=== PATIENT | female | born 1955 | race Caucasian/White ===

== ENCOUNTER 2016-11-26 19:16 | Observation (INO) | payer OTHER ==
--- NOTE | 2016-11-26 20:05 | ER Document Report ---
ED Medical Screen (RME) - General Chief Complaint: Chest Pain Stated Complaint: CHEST PAIN Time Seen by Provider: 11/26/16 19:47 Mode of Arrival: Ambulatory Information source: Patient TRAVEL OUTSIDE OF THE [place] IN LAST 30 DAYS: No - HPI Patient complains to provider of: Chest pain Onset: This afternoon Onset/Duration: Sudden Quality of pain: Achy, Pressure Severity: Moderate Pain Level: 3 Associated Symptoms: Chest pain Exacerbated by: Denies Relieved by: Denies Notes: 11/26/16 20:04 Patient is a 61-year-old female with a history of hypertension, acid reflux, Corey's esophagitis, hiatal hernia, who presents to the emergency room complaining of chest pain that started 215 today, it has increased in intensity over the midsternum since then, when the pain started she felt flushed, she states she feels an uncomfortable heaviness, feels like she has to belch, she denies any shortness of breath, she did report a slight right-sided headache sensation when symptoms started, she took AcipHex at 5 PM without resolution of symptoms Past Medical History - Social History Chew tobacco use (# tins/day): No Frequency of alcohol use: None Drug Abuse: None - Past Medical History Cardiac Medical History: Reports: Hx Hypercholesterolemia, Hx Hypertension Renal/ Medical History: Denies: Hx Peritoneal Dialysis - Immunizations Hx Diphtheria, Pertussis, Tetanus Vaccination: Yes Physical Exam - Vital signs Vitals: Temp Pulse Resp BP Pulse Ox 98.2 F 87 16 140/79 H 98 11/26/16 19:39 11/26/16 19:39 11/26/16 19:39 11/26/16 19:39 11/26/16 19:39 Course - Vital Signs Vital signs: Temp Pulse Resp BP Pulse Ox 98.2 F 87 16 140/79 H 98 11/26/16 19:39 11/26/16 19:39 11/26/16 19:39 11/26/16 19:39 11/26/16 19:39
[2016-11-26 20:41] LABS: ABSOLUTE BASOPHILS # (AUTO) 0.1 10^3/uL (0.0-0.2); ABSOLUTE EOSINOPHILS # (AUTO) 0.3 10^3/uL (0.0-0.6); ABSOLUTE MONOCYTES (AUTO) 0.5 10^3/uL (0.1-1.4); ABSOLUTE NEUT (AUTO) 4.1 10^3/uL (1.7-8.2); BASOPHILS % (AUTO) 0.8 % (0-2); EOSINOPHILS % (AUTO) 3.8 % (0-6); HEMATOCRIT 39.6 % (36.0-47.0); HEMOGLOBIN 13.3 g/dL (12.0-15.5); HGB HCT DIFFERENCE 0.3; MEAN CORPUSCULAR HEMOGLOBIN 29.1 pg (27.0-33.4); MEAN CORPUSCULAR HGB CONC 33.5 g/dL (32.0-36.0); MEAN CORPUSCULAR VOLUME 87 fl (80-97); MONOCYTES % (AUTO) 6.5 % (3-13); RED BLOOD COUNT 4.56 10^6/uL (3.72-5.28); RED CELL DISTRIBUTION WIDTH 12.9 % (11.5-14.0); SEGMENTED NEUTROPHILS % (AUTO) 59.9 % (42-78); WHITE BLOOD COUNT 6.9 10^3/uL (4.0-10.5)
--- NOTE | 2016-11-26 20:50 | RADIOLOGY REPORT (SQ) ---
EXAM DESCRIPTION: CHEST PA/LAT COMPLETED DATE/TIME: 11/26/2016 8:37 pm REASON FOR STUDY: cp COMPARISON: None. EXAM PARAMETERS: NUMBER OF VIEWS: two views TECHNIQUE: Digital Frontal and Lateral radiographic views of the chest acquired. RADIATION DOSE: NA LIMITATIONS: none FINDINGS: LUNGS AND PLEURA: No opacities, masses or pneumothorax. No pleural effusion. MEDIASTINUM AND HILAR STRUCTURES: No masses or contour abnormalities. HEART AND VASCULAR STRUCTURES: Heart normal size. No evidence for failure. BONES: No acute findings. HARDWARE: None in the chest. OTHER: No other significant finding. IMPRESSION: No acute finding. TECHNICAL DOCUMENTATION: JOB ID: [id number] [employer]- All Rights Reserved
[2016-11-26 20:57] LABS: ALANINE AMINOTRANSFERASE 25 U/L (9-52); ALBUMIN 4.6 g/dL (3.5-5.0); ALKALINE PHOSPHATASE 128 U/L (38-126); ANION GAP 15 (5-19); ASPARTATE AMINO TRANSFERASE 26 U/L (14-36); BILIRUBIN,DIRECT 0.3 mg/dL (0.0-0.4); BILIRUBIN,TOTAL 0.6 mg/dL (0.2-1.3); BLOOD UREA NITROGEN 16 mg/dL (7-20); CALCIUM 10.1 mg/dL (8.4-10.2); CARBON DIOXIDE 26 mmol/L (22-30); CHLORIDE 102 mmol/L (98-107); CREATINE KINASE 143 U/L (30-135); CREATININE RESULT 0.83 mg/dL (0.52-1.25); GLUCOSE 97 mg/dL (75-110); POTASSIUM 3.9 mmol/L (3.6-5.0); SODIUM 142.8 mmol/L (137-145)
[2016-11-26 21:09] LABS: CREATINE KINASE MB 0.88 ng/mL (<4.55)
[2016-11-26 21:10] LABS: TROPONIN I < 0.012 ng/mL
[2016-11-26] MEDS ORDERED: ASPIRIN 81 MG TABLET, ENT COATED PO ONE (22:39)
--- NOTE | 2016-11-26 22:39 | ER Document Report ---
ED General - General Mode of Arrival: Ambulatory Information source: Patient TRAVEL OUTSIDE OF THE [place] IN LAST 30 DAYS: No - HPI Patient complains to provider of: Chest Pain Onset: Other - couple weeks ago Associated symptoms: Other - see notes above <HAYDE PERRY - Last Filed: 11/27/16 03:30> <DONATO VALDEZ - Last Filed: 11/27/16 03:53> - General Chief Complaint: Chest Pain Stated Complaint: CHEST PAIN Time Seen by Provider: 11/26/16 22:05 Notes: -year-old female with history of esophagus, hyperlipidemia, hypertension presents to the ED complaining of chest pain that started "a couple weeks ago". Patient states that she saw Dr. Hernandez for chest and back pain in September and began discussing possible appointment with a GI specialist. Patient reports that she was seen at an urgent care 2-3 weeks ago and was told to follow-up with a GI specialist secondary to her Corey's esophagus. Patient states that she has appointment with her GI specialist in 2 weeks. She states that today at around 6 PM in addition to her chest pain she began experiencing a "punching " sensation to her chest, became flushed, and had a headache which lasted for approximately 1 minute. Patient states that 5-10 minutes later she had a similar sensation again. Patient reports that she takes preventative measures for her Corey's is methodical about taking her medication. Patient had a nuclear stress test performed in May 2000 and normal stress test performed in January 2014. Patient denies any shortness of breath or diaphoresis. Patient is currently on AcipHex, Crestor, and Norvasc. PCP: Dr. Hernandez GI: Dr. Chu Cardio: Dr. Gilbert (HAYDE PERRY) - Related Data Allergies/Adverse Reactions: ciprofloxacin [From Cipro] Allergy (Verified 11/27/16 00:31) erythromycin base Allergy (Verified 11/27/16 00:31) feathers Allergy (Verified 11/27/16 00:31) mushroom Allergy (Verified 11/27/16 00:31) Sulfa (Sulfonamide Antibiotics) Allergy (Verified 11/27/16 00:31) Tetracyclines Allergy (Verified 11/27/16 00:31) codeine Adverse Reaction (Verified 11/27/16 00:31) lactose Adverse Reaction (Verified 11/27/16 00:31) lansoprazole [From Prevacid] Adverse Reaction (Verified 11/27/16 00:31) Home Medications: Current Home Medications Amlodipine Besylate [Amlodipine Besylate] 5 mg PO QHS 11/27/16 [History] Aspirin [Ecotrin] 81 mg PO QAM 11/27/16 [History] Cyanocobalamin (Vitamin B-12) [Vitamin B-12] 1,000 mcg PO QAM 11/27/16 [History] Multivit-Min/FA/Lycopen/Lutein [Adults 50+ Multivitamin Tablet] 1 tab PO QAM [History] Psyllium Husk [Metamucil] 1 cap PO DAILY 11/27/16 [History] Rabeprazole Sodium [Aciphex] 20 mg PO BID 11/27/16 [History] Rosuvastatin Calcium [Rosuvastatin Calcium] 10 mg PO QHS 11/27/16 [History] Simethicone [Gas Relief] 125 mg PO PRN PRN 11/27/16 [History] Past Medical History - General Information source: Patient - Social History Smoking Status: Unknown if Ever Smoked Chew tobacco use (# tins/day): No Frequency of alcohol use: None Drug Abuse: None Family History: Reviewed & Not Pertinent - Past Medical History Cardiac Medical History: Reports: Hx Hypercholesterolemia, Hx Hypertension EENT Medical History: Reports: Throat - Corey's esophagus Renal/ Medical History: Denies: Hx Peritoneal Dialysis Past Surgical History: Reports: Hx Cholecystectomy. Denies: Hx Cardiac Catheterization - Immunizations Hx Diphtheria, Pertussis, Tetanus Vaccination: Yes <HAYDE PERRY - Last Filed: 11/27/16 03:30> Review of Systems - Review of Systems Constitutional: No symptoms reported. denies: Diaphoresis EENT: No symptoms reported Cardiovascular: See HPI, Chest pain Respiratory: No symptoms reported. denies: Short of breath Gastrointestinal: No symptoms reported Genitourinary: No symptoms reported Female Genitourinary: No symptoms reported Musculoskeletal: No symptoms reported Skin: No symptoms reported Hematologic/Lymphatic: No symptoms reported Neurological/Psychological: See HPI, Headaches -: Yes All other systems reviewed and negative <HAYDE PERRY - Last Filed: 11/27/16 03:30> Physical Exam - General General appearance: Alert In distress: None - HEENT Head: Normocephalic, Atraumatic Eyes: Normal Extraocular movements intact: Yes Pupils: PERRL - Respiratory Respiratory status: No respiratory distress Breath sounds: Normal - Cardiovascular Rhythm: Regular Heart sounds: Normal auscultation - Abdominal Inspection: Normal Distension: No distension Tenderness: Nontender - Back Back: Normal - Extremities General upper extremity: Normal inspection, Normal ROM General lower extremity: Normal inspection, Normal ROM - Neurological Neuro grossly intact: Yes Cognition: Normal Orientation: AAOx4 [place] Coma Scale Eye Opening: Spontaneous [place] Coma Scale Verbal: Oriented [place] Coma Scale Motor: Obeys Commands [place] Coma Scale Total: 15 Speech: Normal - Psychological Associated symptoms: Normal affect, Normal mood - Skin Skin Temperature: Warm Skin Moisture: Dry Skin Color: Normal <HAYDE PERRY - Last Filed: 11/27/16 03:30> Course - Laboratory Result Diagrams: 11/26/16 20:26 11/26/16 20:26 - Consults Dr. Ogden Time consulted: 23:04 <HAYDE PERRY - Last Filed: 11/27/16 03:30> - Laboratory Result Diagrams: 11/26/16 20:26 11/26/16 20:26 <DONATO VALDEZ - Last Filed: 11/27/16 03:53> - Re-evaluation Re-evalutation: 11/26/16 23:53 Patient presents emerged from a chief complaint of chest pain. Patient has an extensive past medical history of Corey's esophagitis for which she sees a educational therapy teacher. She states that she has been having increasing problem with that for the past couple weeks but is very regimented with her diet and physical activity as well as her medications. She has seen her primary care physician and she has an appointment to see her GI doctor in 2 weeks. Today she had 2 separate episodes where she felt chest pressure and heaviness which was completely different than anything she ever felt with her Corey's before. She does have a history of high blood pressure hyperlipidemia. She was seen in the ED in [place] in 2013 for chest pain and had an outpatient stress test which was negative. She has never been told that she had an SC PE or cardiac stent. Her last EGD was in 2016 and she gets them every 3 years. They have not transformed into any cancerous type lesions. She took one Ecotrin prior to arrival and is pain-free from a chest pain standpoint. She said she also has some pain with palpation of the anterior chest wall and between her rib cage is been going on for a couple weeks but that was not the main reason she came in today. On physical exam she is well-appearing nontoxic in no acute distress negative acute EKG cardiac enzymes and chest x-ray. Given 3 additional Ecotrin pain-free. Talked with Dr. Ogden can admit her to the hospital for chest pain observation and further assessment evaluation. (DONATO VALDEZ) - Vital Signs Vital signs: Temp Pulse Resp BP Pulse Ox 98.2 F 87 23 H 141/74 H 97 11/26/16 19:39 11/27/16 01:43 11/27/16 00:46 11/27/16 00:46 11/27/16 00:46 - Laboratory Laboratory results interpreted by me: 11/26/16 20:26 Alkaline Phosphatase 128 H Creatine Kinase 143 H - EKG Interpretation by Me Additional EKG results interpreted by me: 11/26/16 23:55 EKG interpreted by myself revealed normal sinus rhythm at 60 bpm with no acute ST segment elevation or depression (DONATO VALDEZ) - Consults Dr. Ogden Reason for consultation: 11/27/16 23:04 Dr. Ogden was paged with no answer. 11/27/16 23:20 Dr. Ogden was paged with no answer. 11/27/16 23:52 Patient was discussed with Dr. Ogden who agrees to admit the patient. (HAYDE PERRY) Critical Care Note - Critical Care Note Total time excluding time spent on procedures (mins): 45 <DONATO VALDEZ - Last Filed: 11/27/16 03:53> Discharge <HAYDE PERRY - Last Filed: 11/27/16 03:30> - Discharge Admitting Provider: Hospitalist Unit Admitted: Telemetry <DONATO VALDEZ - Last Filed: 11/27/16 03:53> - Discharge Clinical Impression: Chest pain Qualifiers: Chest pain type: unspecified Qualified Code(s): R07.9 - Chest pain, unspecified Condition: Stable Disposition: ADMITTED OBSERVATION Scribe Attestation: 11/26/16 23:55 I personally performed the services described in the documentation reviewed the documentation recorded by my scribe in my presence and it accurately and completely records my words and actions (DONATO VALDEZ) Scribe Documentation - Scribe Written by Benoit:: Benoit Ravi, 11/26/2016 2325 acting as scribe for :: Lorenzo <HAYDE PERRY - Last Filed: 11/27/16 03:30>
[2016-11-26] MEDS ORDERED: LIDOCAINE 2% VISCOUS SOLN 20 ML UDCUP PO ONE (22:40)
[2016-11-26] MEDS ORDERED: MAG HYDROX/AL HYDROX/SIMETH SUSP 30 ML UDCUP PO ONE (22:40)
[2016-11-26] MEDS ORDERED: METOCLOPRAMIDE HCL ORAL SOLN 10 MG/10 ML UDCUP PO ONE (22:40)
[2016-11-27] MEDS ORDERED: NITROGLYCERIN 0.4 MG/TAB 25 TAB/BOTTLE SL PRN
--- NOTE | 2016-11-27 01:51 | PDOC H&P ---
History of Present Illness Admission Date/PCP: 11/27/16 00:00 ARELI MAI MD Patient complains of: Chest pain History of Present Illness: LEO CARRIZALES is a 61 year old female with a past medical history of hypertension, dyslipidemia, Corey's esophagus and GERD who had been her usual state of health until approximately 2 weeks ago having intermittent episodes of chest pain occurring while at rest which is retrosternal and pressure in nature waxing and waning. Alleviating and lacerating factors are completely variable. She denies shortness of breath or palpitations she has had some nausea without vomiting some diaphoresis. Patient is active with Pilates and or walking 2 miles 5 times a week for exercise. She denies any recent change in medications. No recent cardiac stress testing Past Medical History Cardiac Medical History: Reports: Hyperlipidema, Hypertension EENT Medical History: Reports: Throat - Corey's esophagus Past Surgical History Past Surgical History: Reports: Cholecystectomy Denies: Cardiac Catheterization Social History Information Source: Patient Lives with: Family Smoking Status: Never Smoker Frequency of Alcohol Use: None - Advance Directive Resuscitation Status: Full Code Family History Family History: Malignancy Parental Family History Reviewed: Yes Children Family History Reviewed: Yes Sibling(s) Family History Reviewed.: Yes Medication/Allergy Home Medications: Amlodipine Besylate [Amlodipine Besylate] 11/27/16 Aspirin [Ecotrin] 11/27/16 Psyllium Husk [Metamucil] 11/27/16 Rabeprazole Sodium [Aciphex] 11/27/16 Rosuvastatin Calcium [Rosuvastatin Calcium] 11/27/16 Simethicone [Gas Relief] 11/27/16 Allergies/Adverse Reactions: ciprofloxacin [From Cipro] Allergy (Verified 11/27/16 00:31) erythromycin base Allergy (Verified 11/27/16 00:31) feathers Allergy (Verified 11/27/16 00:31) mushroom Allergy (Verified 11/27/16 00:31) Sulfa (Sulfonamide Antibiotics) Allergy (Verified 11/27/16 00:31) Tetracyclines Allergy (Verified 11/27/16 00:31) codeine Adverse Reaction (Verified 11/27/16 00:31) lactose Adverse Reaction (Verified 11/27/16 00:31) lansoprazole [From Prevacid] Adverse Reaction (Verified 11/27/16 00:31) Review of Systems Constitutional: ABSENT: chills, fever(s), headache(s), weight gain, weight loss Eyes: ABSENT: visual disturbances Ears: ABSENT: hearing changes Cardiovascular: ABSENT: chest pain, dyspnea on exertion, edema, orthropnea, palpitations Respiratory: ABSENT: cough, hemoptysis Gastrointestinal: ABSENT: abdominal pain, constipation, diarrhea, hematemesis, hematochezia, nausea, vomiting Genitourinary: ABSENT: dysuria, hematuria Musculoskeletal: ABSENT: joint swelling Integumentary: ABSENT: rash, wounds Neurological: ABSENT: abnormal gait, abnormal speech, confusion, dizziness, focal weakness, syncope Psychiatric: ABSENT: anxiety, depression, homidical ideation, suicidal ideation Endocrine: ABSENT: cold intolerance, heat intolerance, polydipsia, polyuria Hematologic/Lymphatic: ABSENT: easy bleeding, easy bruising Physical Exam Vital Signs: Temp Pulse Resp BP Pulse Ox 98.2 F 87 23 H 141/74 H 97 11/26/16 19:39 11/26/16 19:39 11/27/16 00:46 11/27/16 00:46 11/27/16 00:46 General appearance: PRESENT: no acute distress, well-developed, well-nourished Head exam: PRESENT: atraumatic, normocephalic Eye exam: PRESENT: conjunctiva pink, EOMI, PERRLA. ABSENT: scleral icterus Ear exam: PRESENT: normal external ear exam Mouth exam: PRESENT: moist, tongue midline Neck exam: ABSENT: carotid bruit, JVD, lymphadenopathy, thyromegaly Respiratory exam: PRESENT: clear to auscultation dudley. ABSENT: rales, rhonchi, wheezes Cardiovascular exam: PRESENT: RRR. ABSENT: diastolic murmur, rubs, systolic murmur Pulses: PRESENT: normal dorsalis pedis pul Vascular exam: PRESENT: normal capillary refill GI/Abdominal exam: PRESENT: normal bowel sounds, soft. ABSENT: distended, guarding, mass, organolmegaly, rebound, tenderness Rectal exam: PRESENT: deferred Extremities exam: PRESENT: full ROM. ABSENT: calf tenderness, clubbing, pedal edema Musculoskeletal exam: PRESENT: tenderness - Chest wall tenderness to palpation although patient states this is not the pain for which she seeks evaluation Neurological exam: PRESENT: alert, awake, oriented to person, oriented to place , oriented to time, oriented to situation, CN II-XII grossly intact. ABSENT: motor sensory deficit Psychiatric exam: PRESENT: appropriate affect, normal mood. ABSENT: homicidal ideation, suicidal ideation Skin exam: PRESENT: dry, intact, warm. ABSENT: cyanosis, rash Results Impressions: Chest X-Ray 11/26/16 20:03 IMPRESSION: No acute finding. Assessment & Plan - Diagnosis (1) Chest pain Qualifiers: Chest pain type: unspecified Qualified Code(s): R07.9 - Chest pain, unspecified Is this a current diagnosis for this admission?: YesPlan: Atypical in nature with increasing frequency. She appears to have several different sources of pain including esophageal, musculoskeletal and possibly cardiac given history of risk factors. I will obtain serial cardiac enzymes reevaluate lipid profile and treadmill stress test. (2) Hiatal hernia Is this a current diagnosis for this admission?: YesPlan: Education and symptomatic management (3) Acid reflux Is this a current diagnosis for this admission?: YesPlan: Education and symptomatic management continue PPI as needed Carafate (4) Hypertension Is this a current diagnosis for this admission?: YesPlan: Continue outpatient regiment consider JS inhibitor as needed (5) Dyslipidemia Is this a current diagnosis for this admission?: YesPlan: Continue outpatient regiment lipid profile pending - Time Time Spent: 50 to 70 Minutes
[2016-11-27] MEDS ORDERED: SUCRALFATE 1 GM TABLET PO ONE (02:00)
[2016-11-27] MEDS ORDERED: (PENDING PHARMACY ID) (Simethicone [Gas Relief] 125 MG) PO SCH (03:15)
[2016-11-27 03:34] LABS: CHOLESTEROL 111.52 mg/dL (0-200); Direct HDL 39 mg/dL (>40); TRIGLYCERIDES 87 mg/dL (<150)
[2016-11-27 03:45] LABS: DIRECT LDL 49 mg/dL (<100)
[2016-11-27 03:52] LABS: TROPONIN I < 0.012 ng/mL
[2016-11-27] MEDS ORDERED: LANSOPRAZOLE 30 MG TAB.RAP.DR PO SCH (08:00)
[2016-11-27] MEDS ORDERED: ASPIRIN 81 MG TABLET, ENT COATED PO SCH (08:00)
[2016-11-27 08:56] LABS: CREATINE KINASE MB 0.57 ng/mL (<4.55)
[2016-11-27 09:05] LABS: TROPONIN I < 0.012 ng/mL
[2016-11-27] MEDS ORDERED: DOCUSATE SODIUM 100 MG CAPSULE PO SCH (10:00)
[2016-11-27] MEDS ORDERED: (PENDING PHARMACY ID) (Rabeprazole Sodium [Aciphex] 20 MG) PO SCH (10:00)
[2016-11-27 12:10] VITALS: BP 128/76
--- NOTE | 2016-11-27 13:32 | DRAGON STRESS TEST REPORT ---
INTRAVENOUS LEXISCAN CARDIOLITE STRESS TEST USING SINGLE PHOTON EMMISION COMPUTERIZED TOMOGRAPHIC. DATE OF PROCEDURE: November 27, 2016 INDICATION : Chest pain CARDIAC RISK FACTORS: Hypertension, dyslipidemia RESTING EKG: Sinus rhythm, no baseline ST segment changes noted. STRESS EKG: No significant changes noted with LexiScan bolus REASON FOR TERMINATION: Protocol. PROCEDURE REPORT: Baseline heart rate 78 beats per minute with blood pressure of 126/71. Patient had no significant complaints. Heart rate at 2 minutes post bolus 111 with a blood pressure of 123/71. 3 minutes post bolus heart rate 114 with blood pressure of 122/69. No significant EKG changes were noted. Patient had no significant complaints during the procedure or postprocedure. Patient injected with Aminophyllin 75 mg at 3 minutes or later after Lexiscan bolus. CONCLUSIONS: Normal EKG and hemodynamic response to IV LexiScan. NUCLEAR DATA: At rest the patient was given 11.96 millicuries of technetium 99 sestamibi injected intravenously. As per protocol rest gated SPECT images were obtained. Subsequently the patient was given intravenous LexiScan at a dose of 0.4 mg in 5 mL intravenously, followed by flush with normal saline. Subsequently the stress dose of 34.1 millicuries of technetium 99 sestamibi was injected intravenously. As per protocol stress gated images were obtained. NUCLEAR INTERPRETATION: Both raw and processed data were used for interpretation. Visual, qualitative, computer-generated quantitative data was used. There was good myocardial uptake of technetium compound. Motion artifact and soft tissue attenuations were noted. Increased visceral uptake was noted. No definitive areas of transient perfusion defect noted. No definitive areas of fixed perfusion defect or scars noted. EKG gated imaging showed LV EF at 56 %, rest and stress gated EF similar visually. T. I D. ratio was 1.24. Lung heart ratio noted to be within normal limits 0.27. No significant extracardiac and abnormal radiotracer activities were noted. RV free wall uptake was noted to be WNL. IMPRESSION: Also refer to comments under nuclear interpretation. Also test results needs to be interpreted in the context of pretest probability. 1. There is no definitive scintigraphic evidence of LexiScan induced myocardial ischemia. 2. There is no definitive scintigraphic evidence of myocardial infarction/scar. 3. EKG gated imaging shows left ejection fraction of approximately 56 %. 4. Clinical correlation requested as occasionally single vessel disease or balanced ischemia could be missed. In approximately 10% of the cases Lexiscan may not cause adequate vasodilatory stress. RECOMMENDATIONS: Aggressive risk factor modification, medical therapy. Clinical correlation with echocardiogram derived ejection fraction. Inability to exercise by itself can lead to increased cardiovascular event risks. Consider cardiology consultation and or follow-up if clinically indicated. I AM AVAILABLE FOR CARDIOLOGY CONSULTATION AND FOLLOWUP IF REQUESTED BY PMD Carloz Perry M.D., SANA Doctor Naturopathic educational resource coordinator, Board certified in cardiovascular diseases, Nuclear cardiology, Echocardiography Cardiac CT and cardiac MRI Ph. [phone] [facility]
[2016-11-27] MEDS ORDERED: AMINOPHYLLINE INJ/PF 250 MG/10 ML SDV IV ONE (13:43)
[2016-11-27] MEDS ORDERED: REGADENOSON INJ 0.4 MG/5 ML DISP.SYRIN IV ONE (13:43)
--- NOTE | 2016-11-27 14:59 | PDOC DISCHARGE SUMMARY ---
General - Admit/Disc Date/PCP Admission Date/Primary Care Provider: 11/27/16 00:00 ARELI MAI MD Discharge Date: 11/27/16 - Discharge Diagnosis (1) Chest pain Is this a current diagnosis for this admission?: Yes (2) Acid reflux Is this a current diagnosis for this admission?: Yes (3) Dyslipidemia Is this a current diagnosis for this admission?: Yes (4) Hiatal hernia Is this a current diagnosis for this admission?: Yes (5) Hypertension Is this a current diagnosis for this admission?: Yes - Additional Information Resuscitation Status: Full Code Discharge Diet: Cardiac - Low-fat low-salt Discharge Activity: Activity As Tolerated, Balance Activity w/Rest Home Medications: Amlodipine Besylate 5 mg PO QHS 11/27/16 Aspirin [Ecotrin] 81 mg PO QAM 11/27/16 Cyanocobalamin (Vitamin B-12) [Vitamin B-12] 1,000 mcg PO QAM 11/27/16 Multivit-Min/FA/Lycopen/Lutein [Adults 50+ Multivitamin Tablet] 1 tab PO QAM Psyllium Husk [Metamucil] 1 cap PO DAILY 11/27/16 Rabeprazole Sodium [Aciphex] 20 mg PO BID 11/27/16 Rosuvastatin Calcium 10 mg PO QHS 11/27/16 Simethicone [Gas Relief] 125 mg PO PRN PRN 11/27/16 Additional Information: Return to the emergency room if symptoms recur History of Present Illness Patient complains of: Chest pain History of Present Illness: LEO CARRIZALES is a 61 year old female with a past medical history of hypertension, dyslipidemia, Corey's esophagus and GERD who had been her usual state of health until approximately 2 weeks ago having intermittent episodes of chest pain occurring while at rest which is retrosternal and pressure in nature waxing and waning. Alleviating and lacerating factors are completely variable. She denies shortness of breath or palpitations she has had some nausea without vomiting some diaphoresis. Patient is active with Pilates and or walking 2 miles 5 times a week for exercise. She denies any recent change in medications. No recent cardiac stress testing Hospital Course Hospital Course: The patient was admitted to telemetry. Patient was placed on supplemental oxygen and antiplatelet therapy. Serial cardiac enzymes were obtained and they were negative for myocardial infarction. The patient was placed on proton pump inhibitor as well. Her chest pain resolved. She eventually underwent nuclear stress test which did not reveal any reversible ischemia or defects. The rest of the hospital stay is essentially unremarkable. Patient eventually discharged home improved. Patient was advised to follow-up with her employment office clerk in 2 weeks. Patient describes the pain to improve upon standing and ambulating around. Physical Exam Vital Signs: Temp Pulse Resp BP Pulse Ox 98.1 F 69 17 128/76 H 99 11/27/16 11:29 11/27/16 14:00 11/27/16 11:29 11/27/16 11:29 11/27/16 11:29 Intake & Output 11/26/16 11/27/16 11/28/16 06:59 06:59 06:59 Intake Total 0 380 Output Total 800 Balance 0 -420 Weight 75.2 kg General appearance: PRESENT: no acute distress, cooperative Head exam: PRESENT: normocephalic Eye exam: PRESENT: EOMI Mouth exam: PRESENT: moist, neck supple Neck exam: ABSENT: JVD Respiratory exam: PRESENT: clear to auscultation dudley. ABSENT: rhonchi, wheezes Cardiovascular exam: PRESENT: RRR. ABSENT: gallop GI/Abdominal exam: PRESENT: soft. ABSENT: distended, tenderness Extremities exam: ABSENT: pedal edema Neurological exam: PRESENT: alert, awake, oriented to person, oriented to place , oriented to time, oriented to situation Skin exam: PRESENT: dry, warm. ABSENT: cyanosis Results Laboratory Results: 11/27/16 02:30 Triglycerides 87 Cholesterol 111.52 LDL Cholesterol Direct 49 VLDL Cholesterol 17.0 HDL Cholesterol 39 L 11/27/16 11/27/16 02:40 08:15 CK-MB (CK-2) 0.70 0.57 Troponin I < 0.012 < 0.012 Impressions: Chest X-Ray 11/26/16 20:03 IMPRESSION: No acute finding. Qualifiers PATEINT BEING DISCHARGED WITH ANY OF THE FOLLOWING DIAGNOSIS?: No Plan Discharge Plan: Follow-up with primary care physician in 1 week. Time Spent: Less than 30 Minutes
[2016-11-27] MEDS ORDERED: AMLODIPINE BESYLATE 5 MG TABLET PO SCH (22:00)
[2016-11-27] MEDS ORDERED: ATORVASTATIN CALCIUM 80 MG TABLET PO SCH (22:00)
== END 2016-11-27 16:00 | disposition home or self-care (01) ==
LOC: ER 19:16 → EH 11-27 → UNDOADMOB 11-27 00:09 → EH 11-27 00:09 → 5 11-27 01:41
PROVIDERS: ADMIT Internal Medicine; ATTEND Internal Medicine
DX: R07.9 Chest pain, unspecified (principal); K21.9 Gastro-esophageal reflux disease without esophagitis; E78.5 Hyperlipidemia, unspecified; K44.9 Diaphragmatic hernia without obstruction or gangrene; I10 Essential (primary) hypertension; K22.70 Barrett's esophagus without dysplasia; R23.2 Flushing; R51 Headache; Z79.82 Long term (current) use of aspirin; Z79.899 Other long term (current) drug therapy; Z90.49 Acquired absence of other specified parts of digestive tract; Z80.9 Family history of malignant neoplasm, unspecified
CPT/HCPCS: 99285; 36415 ×2; 82553 ×2; 82550; 83690; 84443; 85025; 80053; 84484 ×2; 80061; 93017; 71020; 78452; G0378 ×2; A9500; J2785; J3490 ×2; J0280; Q9969

== ENCOUNTER 2017-02-22 20:54 | Emergency (ER) | payer OTHER ==
[2017-02-22] MEDS ORDERED: PREDNISONE 20 MG TABLET PO ONE (21:28)
[2017-02-22] MEDS ORDERED: FAMOTIDINE 20 MG TABLET PO ONE (21:28)
[2017-02-22] MEDS ORDERED: DIPHENHYDRAMINE HCL 25 MG CAPSULE PO ONE (21:28)
--- NOTE | 2017-02-22 23:43 | ER Document Report ---
ED General - General Chief Complaint: Allergic Reaction Stated Complaint: POSSIBLE ALLERGIC REACTION Time Seen by Provider: 02/22/17 23:27 Notes: Patient is a 61-year-old female presents with complaint of allergic reaction. Patient says that she is walking on restaurant sandals on. She is doubly having a large amount of itching to her right pinky toe. She said she then started to have hives throughout her body with what redness into her hands and feet. She says she eats foods that she is always had in the past the restaurant. There is nothing new there. She is unsure if she got bit on the toe bug and/or. She came here and received Benadryl and prednisone and now feels much improved. She said she initially had a little bit tingling in her lips when she first arrived. She never any difficulty breathing or swallowing. She never had any tongue swelling. She has no other complaints at this time. No new medications. TRAVEL OUTSIDE OF THE [place] IN LAST 30 DAYS: No - Related Data Allergies/Adverse Reactions: ciprofloxacin [From Cipro] Allergy (Verified 02/22/17 21:01) erythromycin base Allergy (Verified 02/22/17 21:01) feathers Allergy (Verified 02/22/17 21:01) mushroom Allergy (Verified 02/22/17 21:01) Sulfa (Sulfonamide Antibiotics) Allergy (Verified 02/22/17 21:01) Tetracyclines Allergy (Verified 02/22/17 21:01) codeine Adverse Reaction (Verified 02/22/17 21:01) lactose Adverse Reaction (Verified 02/22/17 21:01) lansoprazole [From Prevacid] Adverse Reaction (Verified 02/22/17 21:01) metoclopramide [From Reglan] Adverse Reaction (Verified 02/22/17 21:01) Past Medical History - Social History Smoking Status: Unknown if Ever Smoked Frequency of alcohol use: None Drug Abuse: None Family History: Reviewed & Not Pertinent - Past Medical History Cardiac Medical History: Reports: Hx Hypercholesterolemia, Hx Hypertension Renal/ Medical History: Denies: Hx Peritoneal Dialysis GI Medical History: Reports: Hx Gastroesophageal Reflux Disease Past Surgical History: Reports: Hx Cholecystectomy. Denies: Hx Cardiac Catheterization - Immunizations Hx Diphtheria, Pertussis, Tetanus Vaccination: Yes Review of Systems - Review of Systems Notes: My Normal Review Basic REVIEW OF SYSTEMS: CONSTITUTIONAL : Denies fever, chills, or sweats. Denies recent illness. EENT: Denies eye, ear, throat, or mouth pain or symptoms. Denies nasal or sinus congestion. CARDIOVASCULAR: Denies chest pain. RESPIRATORY: No difficulty breathing GASTROINTESTINAL: Denies abdominal pain. Denies nausea, vomiting, or diarrhea. Denies constipation. MUSCULOSKELETAL: Denies neck or back pain or joint pain or swelling. SKIN: Rash NEUROLOGICAL: Denies altered mental status or loss of consciousness. Denies headache. Denies weakness or paralysis or loss of use of either side. Denies problems with gait or speech. Denies sensory or motor loss. ALL OTHER SYSTEMS REVIEWED AND NEGATIVE. Physical Exam - Vital signs Vitals: Temp Pulse Resp BP Pulse Ox 97.8 F 95 20 146/71 H 99 02/22/17 21:02 02/22/17 21:02 02/22/17 21:02 02/22/17 21:02 02/22/17 21:02 - Notes Notes: General Appearance: Well nourished, alert, cooperative, no acute distress, no obvious discomfort. Well appearing. Vitals: reviewed, See vital signs table. Head: no swelling or tenderness to the head Eyes: PERRL, EOMI, Conjuctiva clear Mouth: No decreasd moisture Throat: No tonsillar inflammation, No airway obstruction, no pharyngeal or glossal swelling. Neck: Supple, no neck tenderness, Lungs: No wheezing, No rales, No rhonci, No accessory muscle use, good air exchange bilaterally. Heart: Normal rate, Regular rythm, No murmur, no rub Abdomen: Normal BS, soft, No rigidity, No abdominal tenderness, No guarding, no rebound, no abdominal masses, no organomegaly Extremities: strength 5/5 in all extremities, good pulses in all extremities, no swelling or tenderness in the extremities, no edema. Skin: warm, dry, appropriate color, mild redness to the right fifth toe. I do not appreciate any further hives. It appears that her hives have resolved. Neuro: speech clear, oriented x 3, normal affect, responds appropriately to questions. Course - Re-evaluation Re-evalutation: 02/22/17 23:48 Patient appears to have allergic reaction which is now improved after Benadryl and prednisone. I suspect that she most likely got a bug bite to her right fifth toe being that she started having itching in her toe before the rash started. At this time I will prescribe her tapering dose prednisone. Encouraged to return to ER immediately if she has recurrent rash not responding to Benadryl, any difficulty swallowing or breathing, or she feels unwell. Patient will be written a prescription for an adrenal click pen. Dictation of this chart was performed using voice recognition software; therefore, there may be some unintended grammatical errors. - Vital Signs Vital signs: Temp Pulse Resp BP Pulse Ox 97.8 F 95 20 146/71 H 99 02/22/17 21:02 02/22/17 21:02 02/22/17 21:02 02/22/17 21:02 02/22/17 21:02 Discharge - Discharge Clinical Impression: Allergic reaction Qualifiers: Encounter type: initial encounter Qualified Code(s): T78.40XA - Allergy, unspecified, initial encounter Condition: Good Disposition: HOME, SELF-CARE Additional Instructions: ACUTE ALLERGIC REACTION: Your symptoms are due to an allergic reaction. Allergy can cause hives, swelling of the hands, feet, and face, hoarseness, and difficulty swallowing or breathing. It may be due to exposure to medication, animal dander, foods, infection, or insect bites. Medication is a common cause, even when prior use of this same medication caused no problems. Acute treatment may include adrenalin and antihistamines. Usually, the specific allergic agent can't be identified unless repeated episodes occur. Home treatment includes the following: (1) Stop any suspicious medications. This will be discussed with you. (2) Oral antihistamines for the next four to five days. Example, diphenhydramine (Benadryl) every four hours. (3) You may also use cimetidine (Tagamet), ranitidine (Zantac), or famotidine ( Pepcid) every four hours if diphenhydramine is not controlling itching and hives. (4) Avoid aspirin until the hives completely disappear. (5) Avoid hot baths or showers until the hives are completely gone. Call the doctor if faintness, difficulty swallowing, tightness in the chest , or wheezing occurs. EPINEPHRINE: An injection of epinephrine (also called adrenalin) is used to treat allergic reactions, asthma, and some other medical conditions. It is a stimulant medication that consticts blood vessels, relaxes smooth muscles such as in the bronchioles of the lung, elevates blood pressure, and increases heart rate. It can temporarily make you feel very nervous and shakey, but it's affects last only a short time, about 15 to 30 minutes at most. STEROID MEDICATION: You have been given a medicine of the cortisone/steroid class. This medication is used to control inflammation or allergy. It is usually only given for a short period of time, until the acute process subsides. There are usually no side effects from short-term use of cortisone-like medications. Some persons feel an increased sense of well-being and are not sleepy at bedtime. Long-term use of cortisone medications is best avoided, unless required for a severe condition. If your condition does not remit, or relapses after the course of corticosteroid medication, you should consult your physician. ANTIHISTAMINES: An antihistamine has been given and/or prescribed to control your symptoms. Antihistamines are used for many reasons, including itching, watering eyes, runny nose, allergic swelling, hives, and insect stings. Antihistamines may cause drowsiness, especially with the first dose. Do not operate machinery or drive while under the effects of the medication. Other common side effects include dry mouth and eyes. In older persons, antihistamines can occasionally cause urinary retention, constipation, and trouble focusing the eyes. Do not combine the medication with alcohol, or with any other medication without talking to your doctor. FOLLOW-UP CARE: If you have been referred to a physician for follow-up care, call the physician s office for an appointment as you were instructed or within the next two days. If you experience worsening or a significant change in your symptoms, notify the physician immediately or return to the Emergency Department at any time for re-evaluation. Please return to the ER immediately if you have to use the Adrenaclick pen, have facial swelling, tongue swelling, throat swelling, difficulty breathing, or feel that your reaction is becoming severe. Please use the Adrenaclick pen if you have any facial swelling, tongue swelling, or difficulty breathing. Prescriptions: Epinephrine [Adrenaclick] 0.3 mg IM ONCE PRN #1 kit PRN Reason: severe allergic reaction Prednisone 10 mg PO ASDIR #42 tablet Referrals: SUGEY ALMONTE MD [Primary Care Provider] - Follow up as needed
[2017-02-23 00:03] VITALS: BP 133/67
== END 2017-02-23 00:05 | disposition home or self-care (01) ==
LOC: ER 20:54
DX: L50.0 Allergic urticaria (principal); I10 Essential (primary) hypertension; Z88.1 Allergy status to other antibiotic agents; Z91.018 Allergy to other foods; Z91.048 Other nonmedicinal substance allergy status; Z88.2 Allergy status to sulfonamides
CPT/HCPCS: 99283; J7512